=== PATIENT | female | born 1950 | race Caucasian/White ===

== ENCOUNTER 2020-03-07 04:14 | Emergency (ER) | payer MEDICARE, OTHER ==
[2020-03-07 05:23] LABS: ABSOLUTE EOSINOPHILS # (AUTO) 0.1 10^3/uL (0.0-0.6); ABSOLUTE LYMPHOCYTES (AUTO) 1.5 10^3/uL (0.5-4.7); ABSOLUTE MONOCYTES (AUTO) 0.6 10^3/uL (0.1-1.4); ABSOLUTE NEUT (AUTO) 6.5 10^3/uL (1.7-8.2); BASOPHILS % (AUTO) 0.3 % (0-2); EOSINOPHILS % (AUTO) 0.8 % (0-6); HEMATOCRIT 42.9 % (36.0-47.0); HEMOGLOBIN 14.9 g/dL (12.0-15.5); LYMPHOCYTES % (AUTO) 17.7 % (13-45); MEAN CORPUSCULAR HEMOGLOBIN 31.9 pg (27.0-33.4); MEAN CORPUSCULAR HGB CONC 34.7 g/dL (32.0-36.0); MEAN CORPUSCULAR VOLUME 92 fl (80-97); MONOCYTES % (AUTO) 6.3 % (3-13); PLATELET COUNT 267 10^3/uL (150-450); RED BLOOD COUNT 4.66 10^6/uL (3.72-5.28); RED CELL DISTRIBUTION WIDTH 13.1 % (11.5-14.0); SEGMENTED NEUTROPHILS % (AUTO) 74.9 % (42-78); TOTAL CELLS COUNTED % (AUTO) 100 %; WHITE BLOOD COUNT 8.7 10^3/uL (4.0-10.5)
[2020-03-07 05:31] LABS: APPEARANCE,URINE CLEAR; BILIRUBIN,URINE NEGATIVE (NEGATIVE); COLOR,URINE YELLOW; GLUCOSE, URINE NEGATIVE (NEGATIVE); KETONES,URINE TRACE mg/dL (NEGATIVE); LEUKOCYTE ESTERASE,URINE MODERATE (NEGATIVE); NITRITE,URINE NEGATIVE (NEGATIVE); PROTEIN,URINE 30 mg/dL (NEGATIVE); URINE SPECIFIC GRAVITY 1.012; UROBILINOGEN,URINE NEGATIVE mg/dL (<2.0)
[2020-03-07 05:41] LABS: ALBUMIN 4.8 g/dL (3.5-5.0); ALKALINE PHOSPHATASE 107 U/L (38-126); ANION GAP 13 (5-19); ASPARTATE AMINO TRANSFERASE 40 U/L (14-36); BILIRUBIN,DIRECT 0.1 mg/dL (0.0-0.4); BILIRUBIN,TOTAL 0.6 mg/dL (0.2-1.3); BLOOD UREA NITROGEN 9 mg/dL (7-20); CALCIUM 10.2 mg/dL (8.4-10.2); CARBON DIOXIDE 27 mmol/L (22-30); CHLORIDE 100 mmol/L (98-107); GLUCOSE 126 mg/dL (75-110); POTASSIUM 4.2 mmol/L (3.6-5.0); TOTAL PROTEIN 8.4 g/dL (6.3-8.2)
[2020-03-07] MEDS ORDERED: FENTANYL CITRATE INJ/PF 100 MCG/2 ML AMPUL IV ONE ×3 (05:53→10:03)
--- NOTE | 2020-03-07 06:01 | ER Document Report ---
ED GI/ <REKHAMARVIN Graf - Last Filed: 03/07/20 07:15> <RANDALL WILDE - Last Filed: 03/07/20 12:19> - General Chief Complaint: Abdominal Pain Stated Complaint: LEFT SIDE ABDOMIN PAIN Time Seen by Provider: 03/07/20 05:46 Notes: CHIEF COMPLAINT: Abdominal pain HPI: 69-year-old female with history of diverticulitis presenting to the emergency department for evaluation of left lower quadrant pain with diarrhea. Patient states she started having the pain approximately 5 weeks ago. Patient initially was treated for sinusitis with a Z-Bipin. Patient was also having left lower quadrant pain. Patient states that she saw her primary care provider in [place] and was placed on single antibiotic therapy for 10 days she does not recall the name of the antibiotic, pain would seem to get better but then would worsen and she went back to her primary care provider was placed on another 10- day course of the same antibiotic. Pain again would fluctuate better and worse. She went to an urgent care where they prescribed her Flagyl and Cipro. Patient states when she initially saw her PCP they did a CT scan that showed di verticulitis. Patient states her PCP told her the Cipro Flagyl were very strong so she did not take it. Patient is here on vacation. Patient states that she began taking the Cipro Flagyl a week ago because the pain was getting worse again and she did feel better for 3 or 4 days but over the last 24 to 48 hours has had increasing pain in the left lower quadrant. She has had multiple episodes of watery diarrhea over the last for 5 days. No fevers ROS: See HPI - all other systems were reviewed and are otherwise negative Constitutional: no fever Eyes: no drainage, no blurred vision ENT: no runny nose, no sore throat Cardiovascular: no chest pain Resp: no SOB, no cough GI: no vomiting, + diarrhea, + abdominal pain : no dysuria Integumentary: no rash Allergy: no hives Musculoskeletal: no extremity pain or swelling Neurological: no numbness/tingling, no weakness MEDICATIONS: I agree with the patient medications as charted by the RN. ALLERGIES: I agree with the allergies as charted by the RN. PAST MEDICAL HISTORY/PAST SURGICAL HISTORY: Reviewed and agree as charted by RN. SOCIAL HISTORY: Reviewed and agree as charted by RN. FAMILY HISTORY: No significant familial comorbid conditions directly related to patient complaint EXAM: Reviewed vital signs as charted by RN. CONSTITUTIONAL: Alert and oriented and responds appropriately to questions. Well-appearing; well-nourished HEAD: Normocephalic; atraumatic EYES: PERRL; Conjunctivae clear, sclerae non-icteric ENT: normal nose; no rhinorrhea; moist mucous membranes; pharynx without lesions noted, no uvula edema or deviation, no tonsillar hypertrophy, phonation normal NECK: Supple without meningismus; non-tender; no cervical lymphadenopathy, no masses CARD: RRR; no murmurs, no clicks, no rubs, no gallops; symmetric distal pulses RESP: Normal chest excursion without splinting or tachypnea; breath sounds clear and equal bilaterally; no wheezes, no rhonchi, no rales, pulse oximetry 97% on room air not hypoxic ABD/GI: Normal bowel sounds; non-distended; soft, tenderness in the left upper quadrant left lateral abdomen on palpation, no rebound, no guarding; no palpable organomegaly or masses. BACK: The back appears normal and is non-tender to palpation, there is no CVA tenderness EXT: Normal ROM in all joints; non-tender to palpation; no cyanosis, no effusions, no edema SKIN: Normal color for age and race; warm; dry; good turgor; no acute lesions noted NEURO: Moves all extremities equally; Motor and sensory function intact PSYCH: The patient's mood and manner are appropriate. Grooming and personal hygi tamela are appropriate. MDM: 69-year-old female who has been on antibiotics for approximately 5 weeks now presenting for diarrhea left lower quadrant pain. She was diagnosed with diverticulitis 3 to 4 weeks ago. Patient is on Cipro Flagyl over the last week. She is now having watery diarrhea I am concerned for C. difficile colitis. This may also be diverticulitis. Initial screening labs do not show acute emergent abnormalities, no significant leukocytosis the patient will need CT imaging. Patient also has been requested to give a stool specimen. (MARVIN RAMOS) - Related Data Allergies/Adverse Reactions: codeine Allergy (Verified 03/07/20 04:23) Penicillins Allergy (Verified 03/07/20 04:23) sulfacetamide [From Sulfamide] Allergy (Verified 03/07/20 04:23) Past Medical History - Social History Smoking Status: Never Smoker Frequency of alcohol use: None Drug Abuse: None <MARVIN RAMOS - Last Filed: 03/07/20 07:15> - Social History Smoking Status: Never Smoker Frequency of alcohol use: Rare Drug Abuse: None Family History: Reviewed & Not Pertinent <RANDALL WILDE - Last Filed: 03/07/20 12:19> Physical Exam - Vital signs Vitals: Temp Pulse Resp BP Pulse Ox 98.1 F 99 16 152/83 H 96 03/07/20 04:20 03/07/20 04:20 03/07/20 04:20 03/07/20 04:20 03/07/20 04:20 Course - Laboratory Result Diagrams: 03/07/20 05:00 03/07/20 05:00 <MARVIN RAMOS - Last Filed: 03/07/20 07:15> - Laboratory Result Diagrams: 03/07/20 05:00 03/07/20 05:00 - Diagnostic Test Radiology reviewed: Image reviewed, Reports reviewed <RANDALL WILDE Nu - Last Filed: 03/07/20 12:19> - Re-evaluation Re-evalutation: 03/07/20 07:[address] scan and stool specimen. Report will be given to on coming shift to follow and disposition (MARVIN RAMOS) 03/07/20 08:21 Assumed care of patient from LYNNE Ramos. Awaiting CT scan. From report, it sounds like patient has had a prolonged course of diverticulitis. Her labs are reassuring, but certainly it sounds like she may be failing outpatient management. Rounded on patient. Will continue to monitor. PHYSICAL EXAMINATION: GENERAL: Well-appearing, well-nourished and in no acute distress. HEAD: Atraumatic, normocephalic. NECK: Normal range of motion, supple without lymphadenopathy LUNGS: Breath sounds clear to auscultation bilaterally and equal. No wheezes rales or rhonchi. HEART: Regular rate and rhythm without murmurs ABDOMEN: + TTP over the LLQ, normoactive bowel sounds. No guarding, no rebound. No masses appreciated. No CVA Tenderness EXTREMITIES: Normal range of motion, no pitting or edema. No cyanosis. NEUROLOGICAL: No focal neurological deficits. Moves all extremities spontaneously and on command. PSYCH: Normal mood, normal affect. SKIN: Warm, Dry, normal turgor, no rashes or lesions noted. 03/07/20 12:[address] result which I discussed with Dr. Veloz, ER attending. She has no white count. Her urinalysis is not particularly convincing for UTI. We we will send a sed rate and a CRP. If it is elevated we will continue to treat for possible subacute diverticulitis but if they are normal we will not have the patient take any more antibiotics for her left lower quadrant pain. I reviewed this plan with the patient and her and they agree with the plan. Noted sed rate and CRP which are normal. We will have the patient hold any further antibiotics because we do not want to make her symptomology worse or initiate a C. difficile infection. She has been able to get in touch with her primary care and she has been set up with a GI specialist for March 28. Will send home with little bit of pain medicine. We will have her return if she has any worsening symptoms. And have her follow-up with her primary care physician. (RANDALL WILDE) - Vital Signs Vital signs: Temp Pulse Resp BP Pulse Ox 98.6 F 91 14 124/65 96 03/07/20 09:39 03/07/20 09:39 03/07/20 09:39 03/07/20 09:39 03/07/20 09:39 - Laboratory Laboratory results interpreted by me: 03/07/20 03/07/20 05:00 05:00 Glucose 126 H AST 40 H ALT 59 H Total Protein 8.4 H Urine Protein 30 H Urine Ketones TRACE H Urine Blood SMALL H Ur Leukocyte Esterase MODERATE H Discharge <MARVIN RAMOS - Last Filed: 03/07/20 07:15> <RANDALL WILDE - Last Filed: 03/07/20 12:19> - Discharge Clinical Impression: Left lower quadrant abdominal pain Diarrhea Qualifiers: Diarrhea type: unspecified type Qualified Code(s): R19.7 - Diarrhea, unspecified Condition: Stable Disposition: HOME, SELF-CARE Instructions: Abdominal Pain ([facility]) Additional Instructions: Do not take any further antibiotics. On your CT scan today you did not have evidence for an acute diverticulitis infection. Your lab work was also very reassuring. Please follow-up with Dr. Olson in [place] and follow- up with your GI appointment that will be scheduled for March 28. Return if you have worsening symptoms. Take pain medicine as prescribed. Prescriptions: Oxycodone HCl/Acetaminophen [Percocet 5-325 mg Tablet] 1 tab PO Q6H PRN #12 tablet PRN Reason: Ondansetron [Zofran Odt 4 mg Tablet] 1 - 2 tab PO Q4H PRN #15 tab.rapdis PRN Reason: For Nausea/Vomiting
--- NOTE | 2020-03-07 09:14 | RADIOLOGY REPORT (SQ) ---
EXAM DESCRIPTION: CT ABD/PELVIS WITH IV ORAL IMAGES COMPLETED DATE/TIME: 03/07/2020 9:01 am REASON FOR STUDY: LLQ pain COMPARISON: None. TECHNIQUE: CT scan of the abdomen and pelvis performed using helical scanning technique with dynamic intravenous contrast injection. Patient was given oral contrast. Images reviewed with lung, soft ti ssue, and bone windows. Reconstructed coronal and sagittal MPR images reviewed. Delayed images for ev aluation of the urinary system also acquired. All images stored on PACS. All CT scanners at this facility use dose modulation, iterative reconstruction, and/or weight based d osing when appropriate to reduce radiation dose to as low as reasonably achievable (ALARA). [facility]: Dose Right [facility]: CareDose [facility]: Dose Right [facility]: Teradose 4D [facility]: [employer] CONTRAST TYPE AND DOSE: contrast/concentration: Isovue 350.00 mmol/ml; Total Contrast Delivered: 79. 0 ml; Total Saline Delivered: 65.0 ml RENAL FUNCTION: Creatinine 0.59 RADIATION DOSE: CT Rad equipment meets quality standard of care and radiation dose reduction techniq ues were employed. CTDIvol: 6.8 - 9.5 mGy. DLP: 884 mGy-cm.. LIMITATIONS: None. FINDINGS: LOWER CHEST: Minimal linear right basilar opacities, likely atelectasis or scarring. LIVER: Normal size. No masses. No dilated ducts. SPLEEN: Normal size. No focal lesions. Splenule noted. PANCREAS: No masses. No significant calcifications. No adjacent inflammation or peripancreatic fluid collections. Pancreatic duct not dilated. GALLBLADDER: No identified stones by CT criteria. No inflammatory changes to suggest cholecystitis. ADRENAL GLANDS: No significant masses or asymmetry. RIGHT KIDNEY AND URETER: Intermediate density 14 mm lesion off the lower pole (series 3, image 43). 2 upper pole cysts, largest measuring 3.3 cm. No significant calcifications. No hydronephrosis or hydroureter. LEFT KIDNEY AND URETER: No solid masses. Exophytic interpolar cyst measuring 4.5 cm. No significan t calcifications. No hydronephrosis or hydroureter. AORTA AND VESSELS: No aneurysm. No dissection. Renal arteries, SMA, celiac without stenosis. RETROPERITONEUM: No retroperitoneal adenopathy, hemorrhage or masses. BOWEL AND PERITONEAL CAVITY: Scattered colonic diverticula. No evidence of intestinal obstruction. No focal bowel wall thickening. APPENDIX: Not identified. PELVIS: Unremarkable urinary bladder. No significant free fluid. No adenopathy or mass. ABDOMINAL WALL: No masses. No hernias. BONES: No acute bony abnormality. No suspicious lytic or blastic osseous lesions. Lower lumbar face t arthropathy. OTHER: No other significant finding. IMPRESSION: 1. No evidence of acute intra-abdominal/pelvic process. 2. Scattered colonic diverticula without evidence of diverticulitis. 3. Bilateral renal cysts. Additional 14 mm right lower pole intermediate density lesion, possibly p roteinaceous cyst but incompletely characterized. Ultrasound or multiphase CT or MR could be conside red for more definitive characterization. TECHNICAL DOCUMENTATION: JOB ID: [id number] Quality ID # [id number]: Final reports with documentation of one or more dose reduction techniques (e.g., Au tomated exposure control, adjustment of the mA and/or kV according to patient size, use of iterative reconstruction technique) 2010 [employer]- All Rights Reserved Reading location - IP/workstation name: [email or web address]
[2020-03-07 09:40] VITALS: BP 124/65
[2020-03-07 10:08] LABS: C DIFFICILE GDH NEGATIVE (NEGATIVE)
== END 2020-03-07 12:35 | disposition home or self-care (01) ==
LOC: ER 04:14
DX: R10.32 Left lower quadrant pain (principal); R19.7 Diarrhea, unspecified; Z79.899 Other long term (current) drug therapy; Z88.0 Allergy status to penicillin; Z88.8 Allergy status to other drugs, medicaments and biological substances; Z88.2 Allergy status to sulfonamides
CPT/HCPCS: 96376; 99285; 96374; 36415; 87045; 83690; 85025; 85652; 86140; 80053; 81001; 87324; 87449; 74177; J3010; 87205